=== PATIENT | male | born 1960 | race Caucasian/White ===

== ENCOUNTER → 2017-12-15 10:55 | Outpatient (CLI) | payer BC, SELFPAY ==
--- NOTE | 2017-12-15 | CA_ITS ---
PROCEDURE: 2-D M-mode and color Doppler study INDICATIONS FOR THE TEST: Chest pain COPD Heart Murmur Tobacco Smoking Palpitations Fatigue Syncope EdemaX HypertensionXDiabetes Mellitus Rheumatic Fever SOB DOEXObesityXHyperlipidemiaX Family History HD Additional History BUBBLE STUDY DONE APPEARS NEGATIVE PATIENT INFORMATION HEIGHT: 71 WEIGHT:355 GENDER: Male B/P:159/89 2-D/M-MODE INTERPRETATION: 2-D MEASUREMENTS OBSERVED VALUES IN CMS Right Ventricular Dimension (RVDd) 2.7 Interventricular Septum (Thickness)(IVsd) 1.0 Left Ventricular Internal Dimensions(LVIDd) 4.6 Left Ventricular Posterior Wall (Thickness)(LVPWd) 1.3 Aortic Root 3.3 Aortic Cusp Separation 2.2 Left Atrial Dimensions (LAD) 3.7 2D 1. Left atrium is mildly enlarged, left ventricle is normal size, there is mild concentric left ventricular hypertrophy, visually estimated ejection fraction 55% with no obvious regional wall motion abnormality. 2. The right atrium and right ventricle are relatively normal size and function. 3. 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 4. The aortic valve is minimally thickened and fibrosed. 5. The mitral and tricuspid valvular minimally thickened. 6. No significant pericardial effusion noted. DOPPLER INTERROGATION: Doppler interrogation of the aortic, mitral and tricuspid valvular presence of mild mitral and tricuspid regurgitation. Tricuspid regurgitant jet velocity insufficient for calculation of the right ventricular systolic pressure, grade 1 diastolic dysfunction seen with tissue Doppler evidence of raised left atrial pressure. CONCLUSION: 1. Mildly enlarged left atrium, normal left ventricular size, mild concentric left ventricular hypertrophy, visually estimated ejection fraction 55% with no obvious regional wall motion abnormality, grade 1 diastolic dysfunction seen with tissue Doppler evidence of raised left atrial pressure. 2. Mild mitral and tricuspid regurgitation. 3. 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 4. No significant pericardial effusion noted.
== END ==
PROVIDERS: Family Provider Family Medicine; PCP Family Medicine; Visit Provider Nurse Practitioner
DX: R60.0 Localized edema (principal)
CPT/HCPCS: 93306

== ENCOUNTER → 2018-01-12 12:46 | Outpatient (CLI) | payer BC, SELFPAY ==
--- NOTE | 2018-01-12 12:48 | CT_ITS ---
CT heart w calcium score INDICATION: ITS.REASON: abnormal echo ORDERING PHYSICIAN: Benitez Waite MD PATIENT AGE: 57 years COMPARISON: None TECHNIQUE: Axial images are obtained without contrast. Sagittal and coronal reformatted images are reviewed as well. All CT scans at the facility use one or more dose reduction, viz: automated exposure control; ma/kV adjustment per patient size (including targeted exams where dose is matched to indication; i.e. head); or iterative reconstruction technique. FINDINGS: Coronary artery calcium for is 54 indicate mild plaque burden with moderate cardiovascular disease risk IMPRESSION: Mild plaque burden with moderate cardiovascular disease risk
== END ==
PROVIDERS: Family Provider Family Medicine; PCP Family Medicine; Visit Provider Internal Medicine Cardiovascular Disease
DX: I25.3 Aneurysm of heart (principal); I10 Essential (primary) hypertension; R93.1 Abnormal findings on diagnostic imaging of heart and coronary circulation
CPT/HCPCS: 75571

== ENCOUNTER → 2018-12-14 08:55 | Outpatient (CLI) | payer BC, SELFPAY ==
[2018-12-14 09:59] LABS: Alanine Aminotransferase 30 U/L (12-78); Albumin Level 3.9 gm/dL (3.4-5.0); Alkaline Phosphatase 81 U/L (46-116); Aspartate Amino Transferase 18 U/L (15-37); Bilirubin,Direct 0.2 mg/dL (0.0-0.2); Bilirubin,Indirect 0.8 mg/dL (0.0-0.9); Chol/HDL Ratio 3.6 (1-3.5); Cholesterol 150 mg/dL (140-200); HDL Cholesterol 42 mg/dL (27-67); LDL Cholesterol 81 mg/dL (0-130); Triglycerides 137 mg/dL (30-200); VLDL Cholesterol 27 mg/dL (0-40)
== END ==
PROVIDERS: Visit Provider Internal Medicine Cardiovascular Disease
DX: E66.9 Obesity, unspecified (principal); I10 Essential (primary) hypertension; R06.00 Dyspnea, unspecified
CPT/HCPCS: 36415; 80061; 80076

== ENCOUNTER → 2020-05-01 13:16 | Outpatient (CLI) | payer BC, OTHER, SELFPAY ==
--- NOTE | 2020-05-01 | CA_ITS ---
APPROVED REPORT Right Lower Extremity Venous Study for DVT. Knife Sharpener: CT Indications Lower Extremity Pain: Right Lower Extremity Edema: Right Vein Imaging CFV (R): Not Visualized SFJ (R): Not Visualized FEM (R): compressive, spontaneous, phasic, augmentation POP (R): compressive, spontaneous, phasic, augmentation DFV (R): compressive, spontaneous, phasic, augmentation PTV (R): compressive, spontaneous, phasic, augmentation GSV (R): compressive, spontaneous, phasic, augmentation SSV (R): Not Visualized Peroneals (R):Not Visualized GAS (R): compressive, spontaneous, phasic, augmentation Findings RLE negative for DVT/SVT. Vessels fully compressible Conclusion RLE negative for DVT/SVT. Vessels fully compressible Electronically signed by : Gabriel Agrawal MD 05/01/2020 17:23:42
== END ==
PROVIDERS: PCP Nurse Practitioner; Visit Provider Nurse Practitioner
DX: M79.661 Pain in right lower leg (principal)
CPT/HCPCS: 93971

== ENCOUNTER → 2022-03-05 06:16 | Outpatient (CLI) | payer BC, OTHER, SELFPAY ==
[2022-03-04 21:38] LABS: Alanine Aminotransferase 31 U/L (12-78); Albumin Level 4.1 g/dl (3.5-5.0); Albumin/Globulin Ratio 1.4 (1.1-1.8); Alkaline Phosphatase 86 U/L (38-126); Anion Gap 10.4 mEq/L (5-15); Aspartate Amino Transferase 39 U/L (17-59); Bilirubin,Total 0.9 mg/dl (0.2-1.3); Blood Urea Nitrogen 16 mg/dl (9-20); Calcium 10.1 mg/dl (8.4-10.2); Carbon Dioxide 31 mmol/L (22.0-30.0); Chloride 100 mmol/L (98-107); Chol/HDL Ratio 4.6 (1-3.5); Cholesterol 203 mg/dl (140-200); Estimated Glomerular Filt Rate 114 ml/min (>60); GFR (African American) 138 ML/MIN (>60); Globulin 2.9 g/dL (1.3-3.2); Glucose 125 mg/dl (74-100); HDL Cholesterol 44 mg/dl (40-60); Potassium 4.4 mmoL/L (3.5-5.1); Sodium 137 mmol/L (136-145); Triglycerides 202 mg/dl (30-150); VLDL Cholesterol 40 mg/dL (0-40)
[2022-03-04 21:41] LABS: Basophils # 0.1 K/mm3 (0-0.2); Basophils % 1.8 % (0.1-2.0); Eosinophils # 0.4 K/mm3 (0.0-0.4); Eosinophils % 5.9 % (0.1-12.0); Hematocrit 53.4 % (42.0-52.0); Hemoglobin 17.4 g/dL (14.1-18.0); Lymphocytes # 2.6 K/mm3 (0.7-4.5); Lymphocytes % 42.7 % (10-50); Mean Corpuscular HGB Conc 32.6 g/dL (31.8-35.4); Mean Corpuscular Hemoglobin 30.3 pg (27.0-31.2); Mean Platelet Volume 9.3 fl (7.4-10.4); Monocytes # 0.4 K/mm3 (0.1-1.0); Monocytes % 7.3 % (1.7-9.3); Neutrophils # 2.6 K/mm3 (1.8-7.8); Neutrophils % 42.4 % (37.0-80.0); Platelet Count 268 K/mm3 (142-424); Red Blood Count 5.74 M/mm3 (4.60-6.20); Red Cell Distribution Width 13.5 % (11.5-17.5); White Blood Count 6.1 K/mm3 (4.8-10.8)
[2022-03-04 21:48] LABS: Direct LDL Cholesterol 136.11 mg/dL (100-129)
[2022-03-04 22:12] LABS: Prostate Specific Ag Screen 0.5 ng/ml (0.0-4.0); Thyroid Stimulating Hormone 2.37 uIU/mL (0.465-4.68)
[2022-03-04 22:31] LABS: Vitamin B12 462 pg/mL (239-931)
[2022-03-04 23:36] LABS: 25-OH Vitamin D, Total 31.8 ng/mL (30-100)
== END ==
PROVIDERS: PCP Nurse Practitioner; Visit Provider Nurse Practitioner
DX: E11.9 Type 2 diabetes mellitus without complications (principal); I10 Essential (primary) hypertension; K21.9 Gastro-esophageal reflux disease without esophagitis; E78.5 Hyperlipidemia, unspecified; E55.9 Vitamin D deficiency, unspecified; Z12.5 Encounter for screening for malignant neoplasm of prostate; Z79.84 Long term (current) use of oral hypoglycemic drugs
CPT/HCPCS: 80053; 80061; 82043; 82306; 82607; 84443; 85025; G0103

== ENCOUNTER → 2022-08-23 16:15 | Outpatient (CLI) | payer BC, OTHER, SELFPAY ==
[2022-08-23 18:45] LABS: Coronavirus 19, PCR Not Detected (NotDetected); Influenza A, PCR Not Detected (NotDetected); Influenza B, PCR Not Detected (NotDetected)
[2022-08-23 19:12] LABS: Basophils # 0.2 K/mm3 (0-0.2); Basophils % 1.8 % (0.1-2.0); Eosinophils # 0.7 K/mm3 (0.0-0.4); Eosinophils % 8.1 % (0.1-12.0); Hematocrit 49.8 % (42.0-52.0); Hemoglobin 16.4 g/dL (14.1-18.0); Lymphocytes # 2.7 K/mm3 (0.7-4.5); Mean Corpuscular HGB Conc 32.8 g/dL (31.8-35.4); Mean Corpuscular Hemoglobin 29.8 pg (27.0-31.2); Mean Corpuscular Volume 90.6 fl (80-94); Mean Platelet Volume 8.9 fl (7.4-10.4); Monocytes # 0.6 K/mm3 (0.1-1.0); Monocytes % 7.1 % (1.7-9.3); Neutrophils # 4.7 K/mm3 (1.8-7.8); Neutrophils % 53.1 % (37.0-80.0); Platelet Count 286 K/mm3 (142-424); Red Cell Distribution Width 13.3 % (11.5-17.5); White Blood Count 8.9 K/mm3 (4.8-10.8)
== END ==
PROVIDERS: PCP Nurse Practitioner; Visit Provider Nurse Practitioner
DX: J06.9 Acute upper respiratory infection, unspecified (principal); J40 Bronchitis, not specified as acute or chronic; R05.9 Cough, unspecified; R06.2 Wheezing
CPT/HCPCS: 85025; C9803; U0003; U0005

== ENCOUNTER → 2023-03-03 07:59 | Outpatient (CLI) | payer BC, OTHER, SELFPAY | PROVIDERS: PCP Nurse Practitioner; Visit Provider Family Medicine | DX: I25.3 Aneurysm of heart (principal) | CPT/HCPCS: 93306 ==

== ENCOUNTER 2023-03-28 07:29 | Day surgery (SDC) | payer BC, OTHER, SELFPAY ==
[2023-03-28] VITALS (11 sets, daily range): BP systolic 98–130; BP diastolic 49–79; PULSE 61–80; RESP 16–17; O2SAT 92–98; BMI 47.9
--- NOTE | 2023-03-28 07:11 | IR_ITS ---
APPROVED REPORT Patient Location: Outpatient Call Out Operator: BALJIT Reid RT (R) PROCEDURES Left heart catheterization Left ventriculogram Selective coronary angiogram INDICATION Abnormal coronary artery calcium score, Angina pectoris Informed consent was obtained prior to the procedure. COMPLICATIONS None Estimated Blood Loss: Less than 10 mls TECHNIQUE One percent lidocaine used to anesthetize the right anterior aspect of the wrist. The right radial artery was accessed via the Seldinger technique. A 6 Sudanese sheath was placed in the right radial artery. 150 mg magnesium sulfate, 800 mcg of nitroglycerin, 1mg Lidocaine and 5000 U Heparin were given through the arterial sheath. The papa catheter was also used to perform left heart catheterization, left ventriculogram and selective coronary angiogram. At the end of the procedure the sheath was removed good hemostasis was achieved using Traclet band, patient was transferred to the postop holding area in stable condition. ANGIOGRAPHIC RESULTS The left main artery Normal The left anterior descending artery Has proximal 20 to 30% stenosis with mid vessel 10% luminal irregularities The circumflex artery Large dominant with mid vessel 30% stenosis The right coronary artery Vestigial normal The MACIAS ventriculogram reveals Normal 65% The left ventricular end-diastolic pressure Moderate to severely elevated at 30 mmHg IMPRESSION Mild nonflow limiting coronary disease Normal ejection fraction Moderate to severely elevated LVEDP consistent with diastolic dysfunction and/or hypertensive heart disease PLAN 1. Coronary risk factor modification 2. Treatment of diastolic dysfunction 3. Recommend sleep study Electronically signed by : Nestor Norton MD 03/28/2023 09:11:05
[2023-03-28 08:03] LABS: Basophils # 0.1 K/mm3 (0-0.2); Basophils % 1.2 % (0.1-2.0); Eosinophils # 0.5 K/mm3 (0.0-0.4); Eosinophils % 6.9 % (0.1-12.0); Hematocrit 49.6 % (42.0-52.0); Lymphocytes # 2.6 K/mm3 (0.7-4.5); Lymphocytes % 39.2 % (10-50); Mean Corpuscular HGB Conc 32.2 g/dL (31.8-35.4); Mean Corpuscular Volume 90.2 fl (80-94); Monocytes # 0.4 K/mm3 (0.1-1.0); Monocytes % 6.3 % (1.7-9.3); Neutrophils # 3.1 K/mm3 (1.8-7.8); Neutrophils % 46.4 % (37.0-80.0); Platelet Count 221 K/mm3 (142-424); White Blood Count 6.6 K/mm3 (4.8-10.8)
[2023-03-28 08:13] LABS: Anion Gap 11.2 mEq/L (5-15); Blood Urea Nitrogen 18 mg/dl (9-20); Calcium 9.6 mg/dl (8.4-10.2); Carbon Dioxide 31 mmol/L (22.0-30.0); Chloride 101 mmol/L (98-107); Creatinine Clearance Estimated 78 mL/min (50-200); Estimated Glomerular Filt Rate 98 ml/min (>60); GFR (African American) 118 ML/MIN (>60); Glucose 165 mg/dl (74-100); Potassium 4.2 mmoL/L (3.5-5.1); Sodium 139 mmol/L (136-145)
== END 2023-03-28 12:16 | disposition home or self-care (01) ==
PROVIDERS: PCP Nurse Practitioner; Visit Provider Internal Medicine
DX: I10 Essential (primary) hypertension (principal); I25.118 Atherosclerotic heart disease of native coronary artery with other forms of angina pectoris; E11.9 Type 2 diabetes mellitus without complications; E66.9 Obesity, unspecified; E78.5 Hyperlipidemia, unspecified; F32.A Depression, unspecified; I25.3 Aneurysm of heart; K21.9 Gastro-esophageal reflux disease without esophagitis; R53.83 Other fatigue; R94.31 Abnormal electrocardiogram [ECG] [EKG]; Z79.899 Other long term (current) drug therapy; E55.9 Vitamin D deficiency, unspecified; Z79.4 Long term (current) use of insulin
CPT/HCPCS: 80048; 85025; 93458; 99152; C1725; C1760; C1769; J1644; Q9967

== ENCOUNTER 2024-07-24 12:15 | Outpatient (CLI) | payer BC, OTHER, SELFPAY ==
[2024-07-24 18:44] LABS: Coronavirus 19, PCR Not Detected (NotDetected); Influenza A, PCR Not Detected (NotDetected); Influenza B, PCR Not Detected (NotDetected)
== END 2024-07-24 23:59 | disposition home or self-care (01) ==
LOC: LAB.DROPOF 07-25 09:52
PROVIDERS: PCP Nurse Practitioner; Visit Provider Nurse Practitioner
DX: J06.9 Acute upper respiratory infection, unspecified (principal)
CPT/HCPCS: 87636

== ENCOUNTER 2025-01-02 08:00 | Outpatient (CLI) | payer MEDICARE, OTHER, SELFPAY ==
[2025-01-02 19:36] LABS: Basophils # 0.1 K/mm3 (0-0.2); Basophils % 0.9 % (0.1-2.0); Eosinophils # 0.3 Kmm3 (0.0-0.4); Eosinophils % 6.2 % (0.1-12.0); Immature Granulocytes # 0.01 10^3uL; Immature Granulocytes % 0.2 %; Lymphocytes # 2.4 K/mm3 (0.7-4.5); Lymphocytes % 43.5 % (10-50); Mean Corpuscular HGB Conc 33.3 g/dL (31.8-35.4); Mean Corpuscular Hemoglobin 30.1 pg (27.0-31.2); Mean Corpuscular Volume 90.2 fl (80-94); Mean Platelet Volume 10.3 fl (7.4-10.4); Monocytes # 0.5 K/mm3 (0.1-1.0); Monocytes % 8.2 % (1.7-9.3); Neutrophils # 2.3 K/mm3 (1.8-7.8); Nucleated Red Blood Cells # 0 10^3/uL; Nucleated Red Blood Cells % 0 %; Platelet Count 232 K/mm3 (142-424); Red Blood Count 5.32 M/mm3 (4.60-6.20); Red Cell Distribution Width 12.4 % (11.5-17.5); Red Cell Distribution Width-SD 40.4 fL; White Blood Count 5.5 K/mm3 (4.8-10.8)
[2025-01-02 20:24] LABS: Alanine Aminotransferase 26 U/L (12-78); Albumin Level 4.1 g/dl (3.5-5.0); Albumin/Globulin Ratio 1.5 (1.1-1.8); Alkaline Phosphatase 79 U/L (38-126); Anion Gap 8.7 mEq/L (5-15); Aspartate Amino Transferase 31 U/L (17-59); Bilirubin,Total 0.9 mg/dl (0.2-1.3); Blood Urea Nitrogen 13 mg/dl (9-20); Calcium 9.8 mg/dl (8.4-10.2); Carbon Dioxide 30 mmol/L (22.0-30.0); Chloride 102 mmol/L (98-107); Chol/HDL Ratio 4.6 (1-3.5); Cholesterol 184 mg/dl (140-200); Estimated Glomerular Filt Rate 97 ml/min (>60); GFR (African American) 117 ML/MIN (>60); Globulin 2.7 g/dL (1.3-3.2); Glucose 201 mg/dl (74-100); HDL Cholesterol 40 mg/dl (40-60); Potassium 4.7 mmoL/L (3.5-5.1); Sodium 136 mmol/L (136-145); Total Protein,Serum 6.8 g/dl (6.3-8.2); Triglycerides 245 mg/dl (30-150); VLDL Cholesterol 49 mg/dL (0-40)
[2025-01-02 20:36] LABS: Direct LDL Cholesterol 116.84 mg/dL (100-129)
[2025-01-02 20:54] LABS: Hepatitis C Ab Qual. W/ RFX NEGATIVE (Negative)
[2025-01-02 20:56] LABS: Prostate Specific Ag Screen 0.5 ng/ml (0.0-4.0); Thyroid Stimulating Hormone 3.16 uIU/mL (0.465-4.68)
[2025-01-02 21:15] LABS: Vitamin B12 384 pg/mL (239-931)
[2025-01-02 21:29] LABS: Microalbumin/Creatinine Ratio 23.1
[2025-01-02 21:32] LABS: Creatinine,Urine Random 109 mg/dL (Not Estab.)
[2025-01-02 22:04] LABS: 25-OH Vitamin D, Total 25.7 ng/mL (30-100)
[2025-01-02 22:21] LABS: HIV Combo NEGATIVE (Negative)
== END 2025-01-02 23:59 | disposition home or self-care (01) ==
LOC: LAB.DROPOF 01-04 12:04
PROVIDERS: PCP Nurse Practitioner; Visit Provider Nurse Practitioner
DX: Z12.5 Encounter for screening for malignant neoplasm of prostate (principal); Z13.0 Encounter for screening for diseases of the blood and blood-forming organs and certain disorders involving the immune mechanism; E11.9 Type 2 diabetes mellitus without complications; E78.5 Hyperlipidemia, unspecified; I10 Essential (primary) hypertension; I25.10 Atherosclerotic heart disease of native coronary artery without angina pectoris; E66.9 Obesity, unspecified; E55.9 Vitamin D deficiency, unspecified
CPT/HCPCS: 80053; 80061; 82043; 82306; 82570; 82607; 84443; 85025; 86803; 87389; G0103

== ENCOUNTER 2025-04-30 09:00 | Outpatient (CLI) | payer MEDICARE, OTHER, SELFPAY ==
[2025-04-30 15:06] LABS: Albumin Level 4.1 g/dl (3.5-5.0); Chloride 106 mmol/L (98-107); Potassium 4.6 mmoL/L (3.5-5.1); Sodium 141 mmol/L (136-145)
[2025-04-30 15:09] LABS: Alanine Aminotransferase 23 U/L (12-78); Albumin/Globulin Ratio 1.5 (1.1-1.8); Alkaline Phosphatase 78 U/L (38-126); Anion Gap 12.6 mEq/L (5-15); Aspartate Amino Transferase 44 U/L (17-59); Bilirubin,Total 0.8 mg/dl (0.2-1.3); Blood Urea Nitrogen 18 mg/dl (9-20); Calcium 10.1 mg/dl (8.4-10.2); Carbon Dioxide 27 mmol/L (22.0-30.0); Cholesterol 191 mg/dl (140-200); Creatinine,Serum 0.80 mg/dl (0.66-1.25); Estimated Glomerular Filt Rate 97 ml/min (>60); GFR (African American) 117 ML/MIN (>60); Globulin 2.8 g/dL (1.3-3.2); Glucose 158 mg/dl (74-100); Total Protein,Serum 6.9 g/dl (6.3-8.2); Triglycerides 148 mg/dl (30-150)
[2025-04-30 15:10] LABS: HDL Cholesterol 46 mg/dl (40-60)
[2025-04-30 15:25] LABS: 25-OH Vitamin D, Total 24.4 ng/mL (30-100)
--- OUTSIDE RECORDS SUMMARY | 2025-05-01 10:32 | XMS_ITS | Clinical Summary ---
Author Organization [facility] Address [address] [place] [address] Phone Care Team Providers Care Still Operator Helper Name Role Phone Unavailable Primary Care Provider Unavailabl e Allergies No known active allergies Social History Tobacco Use Types Packs/Day Years Used Date Smoking Tobacco: Never Assessed Sex and Gender Information Value Date Recorded Sex Assigned at Not on file Legal Sex Male 6:01 AM EDT Gender Identity Not on file Sexual Orientation Not on file Last Filed Vital Signs Vital Sign Reading Time Taken Comments Blood Pressure 128/78 02/03/2023 9:33 AM EDT Pulse 54 02/03/2023 9:33 AM EDT Temperature - - Respiratory Rate 18 02/03/2023 9:33 AM EDT Oxygen Saturation 95% 02/03/2023 9:33 AM EDT Inhaled Oxygen Concentration - - Weight 145.2 kg (320 lb) 02/03/2023 8:26 AM EDT Height 177.8 cm (5' 10 ) 02/03/2023 8:26 AM EDT Body Mass Index 45.92 02/03/2023 8:26 AM EDT Plan of Treatment Health Maintenance Due Date Last Done Comments Annual Wellness Exam 10/27/1962 Hepatitis C Screening 10/27/1977 DTaP/TDaP/Td (1 - Tdap) 10/27/1978 Cologuard 10/27/2004 Colon Cancer Screening 10/27/2004 Colonoscopy 10/27/2004 FIT 10/27/2004 Sigmoidoscopy 10/27/2004 Virtual Colonography 10/27/2004 Pneumococcal Vaccine 50+ (1 of 1 - PCV) 10/27/2009 Zoster (1 of 2) 10/27/2009 RSV or 60+ (1 - Risk 60-74 years 1-dose series) 2019 COVID-19 Vaccine ( season) 2025 05/06/2022, 06/19/2021, 09/25/2020, Additional history exists Influenza Vaccine (#1) 2025 Hepatitis B Vaccine Aged Out No longe r eligible based on patient's age to complete this topic Meningococcal B Vaccine Aged Out No l onger eligible based on patient's age to complete this topic
--- OUTSIDE RECORDS SUMMARY | 2025-05-01 10:32 | XMS_ITS | Clinical Summary ---
Author Organization Healthcare Address [facility] [place] [address] Care Team Providers Care Cyber Intel Planner Name Role Phone Unavailable Primary Care Provider Unavailabl e Social History Tobacco Use Types Packs/Day Years Used Date Smoking Tobacco: Never Assessed Sex and Gender Information Value Date Recorded Sex Assigned at Not on file Legal Sex Male 7:51 PM EDT Gender Identity Not on file Sexual Orientation Not on file Last Filed Vital Signs Vital Sign Reading Time Taken Comments Blood Pressure 144/80 03/03/2023 9:05 AM EDT Pulse 68 03/03/2023 9:05 AM EDT Temperature - - Respiratory Rate - - Oxygen Saturation - - Inhaled Oxygen Concentration - - Weight 152 kg (335 lb) 03/03/2023 9:05 AM EDT Height 177.8 cm (5' 10 ) 03/03/2023 9:05 AM EDT Body Mass Index 48.07 03/03/2023 9:05 AM EDT Plan of Treatment Health Maintenance Due Date Last Done Comments [facility]-Depression Screening 1959 [facility]-Infant/Child/Adol SDOH Screenings 1960 [facility]- SDOH Screenings 10/27/1977 [facility]-Adult SDOH Screenings 10/27/1977 [facility]-DTaP,Tdap,and Td Vaccine s (1 - Tdap) 10/25/1996 10/24/1996 CT Colonography 10/27/2004 Colonoscopy 10/27/2004 FIT-DNA 10/27/2004 FIT 10/27/2004 FOBT 10/27/2004 Sigmoidoscopy 10/27/2004 [facility]-Colorectal Cancer Screening 10/27/2004 [facility]-Pneumococcal Vaccine: 50 + Years (1 of 1 - PCV) 10/27/2009 [facility]-Zoster Vaccines (1 of 2) 10/27/2009 [id number] Vaccine (1 - 20 24-25 season) 2025 [facility]-Influenza Vaccine (#1) 2025 [facility]-RSV Vaccine: 60+ Years o r (1 - 1-dose 75+ series) 10/27/2034 HPV Vaccines Aged Out No longer eligi ble based on patient's age to complete this topic [facility]-HIB Vaccines Aged Out No longer e ligible based on patient's age to complete this topic [facility]-Hepatitis A Vaccines Aged Out No longer eligible based on patient's age to complete this topic [facility]-IPV Vaccines Aged Out No longer e ligible based on patient's age to complete this topic [facility]-Rotavirus Vaccines Aged Out No lo nger eligible based on patient's age to complete this topic Insurance
== END 2025-04-30 23:59 | disposition home or self-care (01) ==
LOC: LAB.DROPOF 05-01 10:23
PROVIDERS: PCP Nurse Practitioner; Visit Provider Nurse Practitioner
DX: E78.5 Hyperlipidemia, unspecified (principal); E11.9 Type 2 diabetes mellitus without complications; E55.9 Vitamin D deficiency, unspecified
CPT/HCPCS: 80053; 80061; 82306

== ENCOUNTER 2025-07-30 13:06 | Outpatient (CLI) | payer MEDICARE, OTHER, SELFPAY ==
[2025-07-30 15:21] LABS: Alanine Aminotransferase 24 U/L (12-78); Albumin Level 4.0 g/dl (3.5-5.0); Albumin/Globulin Ratio 1.4 (1.1-1.8); Alkaline Phosphatase 83 U/L (38-126); Anion Gap 14.4 mEq/L (5-15); Aspartate Amino Transferase 35 U/L (17-59); Bilirubin,Total 0.8 mg/dl (0.2-1.3); Blood Urea Nitrogen 24 mg/dl (9-20); Calcium 10.0 mg/dl (8.4-10.2); Carbon Dioxide 26 mmol/L (22.0-30.0); Chloride 103 mmol/L (98-107); Cholesterol 189 mg/dl (140-200); Creatinine,Serum 0.90 mg/dl (0.66-1.25); Estimated Glomerular Filt Rate 85 ml/min (>60); GFR (African American) 102 ML/MIN (>60); Globulin 2.9 g/dL (1.3-3.2); Glucose 124 mg/dl (74-100); HDL Cholesterol 48 mg/dl (40-60); Potassium 4.4 mmoL/L (3.5-5.1); Sodium 139 mmol/L (136-145); Total Protein,Serum 6.9 g/dl (6.3-8.2); Triglycerides 136 mg/dl (30-150)
[2025-07-30 15:38] LABS: 25-OH Vitamin D, Total 30.1 ng/mL (30-100)
== END 2025-07-30 23:59 | disposition home or self-care (01) ==
LOC: LAB.DROPOF 08-01 13:06
PROVIDERS: PCP Nurse Practitioner; Visit Provider Nurse Practitioner
DX: E55.9 Vitamin D deficiency, unspecified (principal); E78.5 Hyperlipidemia, unspecified; E11.9 Type 2 diabetes mellitus without complications
CPT/HCPCS: 80053; 80061; 82043; 82306; 82570